=== PATIENT | female | born 1975 | race Caucasian/White ===

== ENCOUNTER 2023-03-13 17:32 | Emergency (ER) | payer MEDICAID ==
[~2023-03-13] VITALS: Ht 165.1 cm; Wt 63.5 kg
[2023-03-13 17:44] VITALS: BP 121/96
--- NOTE | 2023-03-13 18:18 | NUR ---
47 YO FEMALE HYACINTH PRESENTS TO THE ED WITH C/O. PATIENT STATES SHE HAS PAIN TO [place]. 3 DAYS AGO. PATIENT STATES PMH DVT, ALLERGIES. PATIENT VERBALLY UPSET.
--- NOTE | 2023-03-13 18:18 | NUR ---
WALKED PATIENT TO BED 9
--- NOTE | 2023-03-13 18:48 | NUR ---
Sabina damon in [facility] - 03/13/23 at 1849 by [email or web address] PATIENT ELOPED.
--- NOTE | 2023-03-13 18:48 | NUR ---
PT STORMED OUT OF ER. PATIENT LEFT WITHOUT BEING SEEN BY ALEJO STARR. NO FURTHER CARE PROVIDED FOR PATIENT.
== END 2023-03-13 18:48 | disposition left against medical advice (07) ==
LOC: MED 17:32
DX: N90.7 Vulvar cyst (principal); Z53.21 Procedure and treatment not carried out due to patient leaving prior to being seen by health care provider
CPT/HCPCS: 99281